=== PATIENT | female | born 1985 | race African-American/Black ===

== ENCOUNTER 2018-03-06 06:13 | Inpatient (IN) ==
[2018-03-06] MEDS ORDERED: ceFAZolin 3,000 MG in SYRINGE 1 EACH IV ONE (07:09)
[2018-03-06] MEDS ORDERED: CITRIC ACID/SODIUM CITRATE 30 ML UDCUP PO ONE (07:09)
[2018-03-06] MEDS ORDERED: FAMOTIDINE 20 MG/2 ML VIAL IV ONE (07:09)
[2018-03-06 07:48] LABS: Basophils % 0.5 % (0.0-0.8); Eosinophils % 0.9 % (0.00-10.9); Hematocrit 34.4 VOL% (35.7-47.0); Hemoglobin 11.9 GM/DL (12.0-16.0); Immature Granulocytes % 0.9 %; Immature Granulocytes Absolute 0.04 #; Lymphocytes # 1.2 10*3/uL (1.4-4.0); Lymphocytes % 26.8 % (21.3-54.2); Mean Corpuscular HGB Conc 34.6 GM/DL (32-36); Mean Corpuscular Hemoglobin 30 PG (27-34); Mean Corpuscular Volume 85.4 FL (87-102); Mean Platelet Volume 11.1 FL (9.6-12.0); Monocytes # 0.3 10*3/uL (0.11-0.8); Monocytes % 7.3 % (1.7-12.7); Neutrophils # 2.8 10*3/uL (1.4-7.4); Neutrophils % 63.6 % (38.7-73.9); Platelet Count 135 T/CUMM (130-400); Red Blood Count 4.03 MC/CUMM (3.8-5.5); Red Cell Distribution Width 13.8 % (9.3-17.3); White Blood Count 4.4 T/CUMM (4-12)
[2018-03-06] MEDS ORDERED: OXYTOCIN 10 UNIT/ML VIAL IM ONE (08:12)
[2018-03-06] MEDS ORDERED: OXYTOCIN/LR 30 UNIT/1,000 ML BAG IV ONE (08:13)
[2018-03-06 08:16] LABS: Alanine Aminotransferase 14 U/L (13-56); Albumin 2.3 G/DL (3.4-5.0); Alkaline Phosphatase 156 U/L (45-117); Aspartate Amino Transferase 12 U/L (0-37); Bilirubin,Total < 0.39 MG/DL (0.2-1.0); Blood Urea Nitrogen 7 MG/DL (7-18); Calcium 8.4 MG/DL (8.5-10.1); Glucose 69 MG/DL (74-106); Osmolality,Calculated 270.7 MOS/KG (273-304); Potassium 3.6 MMOL/L (3.5-5.1); Sodium 138 MMOL/L (136-145); Total Protein 5.9 G/DL (6.4-8.3)
[2018-03-06] MEDS: LACTATED RINGERS 1,000 ML IV SCH ×5 (09:07→20:35)
[2018-03-06 09:16] LABS: Cord Arterial Blood HCO3 22.1 MMOL/L
[2018-03-06 09:19] LABS: Cord Venous Blood HCO3 22.8 MMOL/L
[2018-03-06] MEDS ORDERED: PHENYLEPHRINE 1 MG/10 ML SYRINGE IV ONE (09:32)
[2018-03-06] MEDS ORDERED: BUPIVACAINE SPINAL 0.75% 2 ML AMP SPINAL ONE (09:33)
[2018-03-06] MEDS ORDERED: fentaNYL 100 MCG/2 ML VIAL ONE (09:33)
[2018-03-06] MEDS ORDERED: ONDANSETRON 4 MG/2 ML VIAL ONE (09:33)
[2018-03-06] MEDS ORDERED: MORPHINE 10 MG/10 ML VIAL ONE (09:33)
[2018-03-06 09:53] LABS: Apearance,Urine CLEAR (Clear); Bilirubin,Urine Negative (Negative); Blood, Urine Negative (Negative); Glucose,Urine (UA) Negative (Negative); Ketones,Urine 20 mg/dL (Negative); Mucus,Urine Occasional /LPF (Occasional); Nitrite,Urine Negative (Negative); Protein,Urine Negative; RBC,Urine <1 /HPF (0-4); Squamous Epithelial Cell,Urine Occasional /HPF (0-10); Urine Color Straw (Yellow); Urine Urobilinogen < 2.0 EU/DL (0.2-1.0); WBC,Urine <1 /HPF (0-6)
[2018-03-06] MEDS ORDERED: SIMETHICONE CHEW 80 MG TABLET PO PRN (10:02)
[2018-03-06] MEDS ORDERED: ACETAMINOPHEN 325 MG TABLET PO PRN (10:02)
[2018-03-06] MEDS ORDERED: OXYTOCIN/LR 20 UNIT/1,000 ML BAG IV ONE (10:02)
[2018-03-06] MEDS ORDERED: ONDANSETRON 4 MG/2 ML VIAL IV PRN (10:02)
[2018-03-06] MEDS ORDERED: MAGNESIUM HYDROXIDE SUSP 30 ML UDCUP PO PRN (10:02)
[2018-03-06] MEDS ORDERED: RHO(D) IMMUNE GLOBULIN 300 MCG SYRINGE IM ONE (10:02)
[2018-03-06] MEDS: ceFAZolin 1,000 MG in SYRINGE 1 EACH IV SCH ×2 (15:02→22:39)
[2018-03-06 17:22] LABS: Basophils % 0.3 % (0.0-0.8); Eosinophils % 0.5 % (0.00-10.9); Hematocrit 32.4 VOL% (35.7-47.0); Hemoglobin 11.3 GM/DL (12.0-16.0); Immature Granulocytes % 0.5 %; Immature Granulocytes Absolute 0.03 #; Lymphocytes # 1.2 10*3/uL (1.4-4.0); Lymphocytes % 19.5 % (21.3-54.2); Mean Corpuscular HGB Conc 34.9 GM/DL (32-36); Mean Corpuscular Hemoglobin 30 PG (27-34); Mean Corpuscular Volume 87.1 FL (87-102); Mean Platelet Volume 11.4 FL (9.6-12.0); Monocytes # 0.6 10*3/uL (0.11-0.8); Neutrophils # 4.4 10*3/uL (1.4-7.4); Neutrophils % 70.2 % (38.7-73.9); Platelet Count 131 T/CUMM (130-400); Red Blood Count 3.72 MC/CUMM (3.8-5.5); Red Cell Distribution Width 13.9 % (9.3-17.3); White Blood Count 6.2 T/CUMM (4-12)
[2018-03-06] MEDS: IBUPROFEN 800 MG TABLET PO PRN (20:30)
[2018-03-06] MEDS: DOCUSATE SODIUM 100 MG CAPSULE PO SCH (20:31)
[2018-03-07] MEDS: LACTATED RINGERS 1,000 ML IV SCH ×2 (02:59→05:33)
[2018-03-07 06:46] LABS: Basophils % 0.5 % (0.0-0.8); Eosinophils # 0.1 10*3/uL (0.0-0.87); Eosinophils % 1.8 % (0.00-10.9); Hematocrit 34.8 VOL% (35.7-47.0); Immature Granulocytes % 0.3 %; Immature Granulocytes Absolute 0.02 #; Lymphocytes # 1.3 10*3/uL (1.4-4.0); Lymphocytes % 21.6 % (21.3-54.2); Mean Corpuscular HGB Conc 34.5 GM/DL (32-36); Mean Corpuscular Hemoglobin 29 PG (27-34); Mean Corpuscular Volume 85.1 FL (87-102); Mean Platelet Volume 11.4 FL (9.6-12.0); Monocytes # 0.6 10*3/uL (0.11-0.8); Monocytes % 9.7 % (1.7-12.7); Neutrophils % 66.1 % (38.7-73.9); Platelet Count 143 T/CUMM (130-400); Red Blood Count 4.09 MC/CUMM (3.8-5.5); Red Cell Distribution Width 13.9 % (9.3-17.3); White Blood Count 6.1 T/CUMM (4-12)
[2018-03-07] MEDS: MULTIVITAMIN (PRENATAL) TABLET PO SCH (09:34)
[2018-03-07] MEDS: DOCUSATE SODIUM 100 MG CAPSULE PO SCH ×2 (09:34→21:04)
[2018-03-07] MEDS: IBUPROFEN 800 MG TABLET PO PRN (17:44)
[2018-03-08] MEDS: IBUPROFEN 800 MG TABLET PO PRN (07:37)
[2018-03-08] MEDS: DOCUSATE SODIUM 100 MG CAPSULE PO SCH (08:06)
[2018-03-08] MEDS: MULTIVITAMIN (PRENATAL) TABLET PO SCH (08:06)
[2018-03-08 12:05] VITALS: BP 106/61
[2018-03-08] MEDS ORDERED: DIPH/TET/ACEL PERT BOOSTER VACCINE 0.5 ML VIAL IM ONE (13:54)
== END 2018-03-08 15:00 | disposition home or self-care (01) | DRG 540 ==
LOC: N.OBOUT 06:13 → N.OB 06:15
PROVIDERS: ADMIT Obstetrics & Gynecology; ATTEND Obstetrics & Gynecology